=== PATIENT | male | born 1990 | race Two or more races ===

== ENCOUNTER 2021-04-23 20:44 | Emergency (ER) | payer MEDICAID, OTHER ==
[~2021-04-23] VITALS: Ht 167.6 cm; Wt 83.9 kg
[2021-04-23 20:48] VITALS: BP 142/91
[2021-04-23] MEDS ORDERED: NEOMYCIN-BACITRACIN-POLYM UNITDOSE PKG TOP OINT TOP ONE (23:15)
[2021-04-23] MEDS ORDERED: LIDOCAINE 1% HCL (LOCAL ANESTH.) INJ 20ML MDV ID ONE (23:15)
[2021-04-23] MEDS ORDERED: AMOX500T86 PO (23:40)
== END 2021-04-24 00:02 | disposition home or self-care (01) ==
LOC: ER 20:48
DX: S61.216A Laceration without foreign body of right little finger without damage to nail, initial encounter (principal); W54.0XXA Bitten by dog, initial encounter; Y93.89 Activity, other specified; Y92.89 Other specified places as the place of occurrence of the external cause; Y99.8 Other external cause status
CPT/HCPCS: 12002; 73120; 99283; J2001